=== PATIENT | female | born 1970 | race Caucasian/White ===

== ENCOUNTER 2017-05-03 13:09 | Emergency (ER) | payer BC ==
[2017-05-03 13:18] VITALS: BP 177/94
--- NOTE | 2017-05-03 15:01 | RAD ---
HISTORY: Elbow pain, fall COMPARISONS: None VIEWS: 6, Frontal, lateral, and oblique views of the left elbow, with frontal and lateral views of the left forearm FINDINGS: BONE DENSITY: Normal. BONES: There is no displaced fracture. JOINTS: There is no arthropathy. There is a posterior supracondylar fat pad with joint effusion. ALIGNMENT: There is no dislocation. SOFT TISSUES: Unremarkable. OTHER FINDINGS: None. IMPRESSION: 1. NO ACUTE OSSEOUS INJURY. 2. THERE IS A JOINT EFFUSION. THIS IS CONCERNING FOR THE PRESENCE OF AN OCCULT FRACTURE GIVEN THE HISTORY OF TRAUMA..
[2017-05-03] MEDS ORDERED: Ketorolac INJ* 60 MG/2 ML VIAL IM ONE (15:18)
[2017-05-03] MEDS ORDERED: Ibuprofen TAB* 800 MG PO ONE ×2 (15:29)
--- NOTE | 2017-05-03 15:32 | ED ---
Upper Extremity Pain - HPI Summary HPI Summary: 46F presents with left elbow pain s/p fall today. She slipped on black ice and landed on her left elbow and arm. She had fracture of area when has 9. She denies any numbness or tingling. She has limited ROM of elbow. She denies any other injury. She has no medical conditions. 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 pain is 10/10 and did not take anything for it. - History of Current Complaint Chief Complaint: EDExtremityUpper Stated Complaint: POSSIBLE BROKEN RIGHT ARM Time Seen by Provider: 05/03/17 14:30 - Allergies/Home Medications Allergies/Adverse Reactions: Allergies Allergy/AdvReac Type Severity Reaction Status Date / Time No Known Allergies Allergy Verified 03/17/13 13:02 PMH/Surg Hx/FS Hx/Imm Hx Endocrine/Hematology History: Denies: Hx Anticoagulant Therapy Cardiovascular History: Denies: Hx Hypertension Infectious Disease History: No Infectious Disease History: Denies: Traveled Outside the [place] in Last 30 Days - Family History Known Family History: Negative: Diabetes - Social History Substance Use Type: Reports: Marijuana, Prescribed Review of Systems Negative: Fever Negative: Chest Pain Negative: Shortness Of Breath Positive: Myalgia - elbow pain All Other Systems Reviewed And Are Negative: Yes Physical Exam Triage Information Reviewed: Yes Vital Signs On Initial Exam: Initial Vitals Temp Pulse Resp BP Pulse Ox 98.4 F 94 18 177/94 100 05/03/17 13:16 05/03/17 13:16 05/03/17 13:16 05/03/17 13:16 05/03/17 13:16 Vital Signs Reviewed: Yes Appearance: Positive: Pain Distress Skin: Positive: Warm, Dry Head/Face: Positive: Normal Head/Face Inspection Eyes: Positive: Normal, Conjunctiva Clear Respiratory/Lung Sounds: Positive: Clear to Auscultation, Breath Sounds Present Cardiovascular: Positive: Normal, RRR Musculoskeletal: Positive: Limited @ - left elbow, Other - good pulses, capillary refill<2, sensation grossly intact, 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 - Radiology elbow Xray Interpretation: Positive (See Comments) - IMPRESSION: 1. NO ACUTE OSSEOUS INJURY. 2. THERE IS A JOINT EFFUSION. THIS IS CONCERNING FOR THE PRESENCE OF AN OCCULT FRACTURE GIVEN THE HISTORY OF TRAUMA.. Radiology Interpretation Completed By: Radiologist Course/Dx - Course Course Of Treatment: 46F presents with left elbow pain s/p fall today. She slipped on black ice and landed on her left elbow and arm. She had fracture of area when has 9. She denies any numbness or tingling. She has limited ROM of elbow. She denies any other injury. She has no medical conditions. 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 pain is 10/ 10 and did not take anything for it. on exam tendereness over left arm. neurovascular intact. xray shows joint effusion so will treat as radial head fracture. encoruage RICE and follow up with ortho to start ROM activities. patient understand and agrees with plan. - Diagnoses Differential Diagnosis/HQI/PQRI: Positive: Fracture (Closed), Strain, Sprain Provider Diagnoses: Left radial head fracture Discharge - Discharge Plan Condition: Good Disposition: HOME Prescriptions: oxyCODONE/Acetamin 5/325 MG* [Percocet 5/325 TAB*] 1 tab PO Q6H PRN #16 tab MDD 4 PRN Reason: Pain Patient Education Materials: Elbow Fracture (ED) Referrals: Arian Sims MD [Medical Doctor] - No Primary Care Phys,NOPCP [Primary Care Provider] - Additional Instructions: with joint effusion will treat as radial head fracture Keep elbow in sling Call ortho office to set up appointment for follow up Use ibuprofen for pain every 6 hours and use narcotic for breakthrough pain Ice, elevate Return to ED if develop any new or worsening symptoms
== END 2017-05-03 15:49 | disposition home or self-care (01) ==
LOC: ED 13:09
DX: S52.92XA Unspecified fracture of left forearm, initial encounter for closed fracture (principal); W00.9XXA Unspecified fall due to ice and snow, initial encounter; Y93.9 Activity, unspecified; Y92.9 Unspecified place or not applicable
CPT/HCPCS: 96372; 99282; A9270-GY; J1885